=== PATIENT | female | born 1995 | race Caucasian/White ===

== ENCOUNTER 2019-01-24 10:14 | Day surgery (SDC) | payer OTHER ==
[~2019-01-24] VITALS: Ht 172.7 cm; Wt 99.0 kg
[2019-01-24] MEDS ORDERED: SYNTHROID0.05 MG/TA PO (11:04)
[2019-01-24] MEDS ORDERED: ZANAFLEX CAPSULE4 MG PO (11:05)
[2019-01-24] MEDS ORDERED: BUSPAR10 MG PO (11:05)
[2019-01-24] MEDS ORDERED: WELLBUTRIN XL300 M1 PO (11:06)
[2019-01-24] MEDS ORDERED: DESYREL 100MG100 MG PO (11:06)
[2019-01-24] MEDS ORDERED: LINZESS145CAP PO (11:07)
[2019-01-24] MEDS ORDERED: FASTIN30 MG PO (11:07)
[2019-01-24] MEDS ORDERED: ZOLOFT 25MG25 MG PO (11:08)
[2019-01-24] MEDS ORDERED: ZOMIG5 MG PO (11:10)
[2019-01-24] MEDS ORDERED: ADVIL200 MG PO (11:11)
[2019-01-24] MEDS ORDERED: ZOFRAN 4MG T4 MG/TAB PO (11:12)
[2019-01-24] MEDS ORDERED: PHENERGAN 25 TA25 MG PO (11:12)
[2019-01-24 11:13] VITALS: BP 117/74; PULSE 74; TEMP 98.4
[2019-01-24] MEDS ORDERED: KLONOPIN 0.5MG0.5 MG PO (11:13)
[2019-01-24] MEDS ORDERED: CARAFATE 1GM1 G PO (11:13)
[2019-01-24 12:25] VITALS: BP 107/69; PULSE 65; TEMP 97.7
[2019-01-24 12:30] VITALS: BP 106/57; PULSE 60
[2019-01-24 12:45] VITALS: BP 94/76; PULSE 60
[2019-01-24 13:00] VITALS: BP 106/73; PULSE 76
--- NOTE | 2019-01-24 15:01 | NUR ---
PT RETURNED TO BAY 3 FROM ENDO TX ROOM PER CART. PT A/OX3. DENIES PAIN, NAUSEA, DISCOMFORT. FRIEND AT BEDSIDE. PT OFFERED WATER AND IS TOLERATING WELL. WILL CONT TO MONITOR PROGRESSION
--- NOTE | 2019-01-24 15:06 | NUR ---
PT TOLERATED MUFFIN AND WATER WITHOUT DIFFICULTY. DENIES PAIN, NAUSEA OR DISCOMFORT. A/OX3 AND TALKING WITH FRIEND. IV DC'D TO LEFT WRIST WITHOUT DIFFICULTY. DISMISSAL INSTRUCTIONS GIVEN AND PT VOICES UNDERSTANDING. PT AMBULATED OUT TO FRIEND'S VEHICLE WITHOUT DIFFICULTY.
== END 2019-01-24 15:09 | disposition home or self-care (01) ==
LOC: SDCO 10:14
DX: R11.2 Nausea with vomiting, unspecified (principal); G43.709 Chronic migraine without aura, not intractable, without status migrainosus; K59.09 Other constipation; R53.82 Chronic fatigue, unspecified; D50.9 Iron deficiency anemia, unspecified; K92.1 Melena; Z90.49 Acquired absence of other specified parts of digestive tract
CPT/HCPCS: J2704; J7030